=== PATIENT | female | born 1995 | race African-American/Black ===

== ENCOUNTER 2018-08-13 09:00 | Emergency (ER) | payer MEDICAID ==
[~2018-08-13] VITALS: Ht 149.9 cm; Wt 45.0 kg
[2018-08-13 09:04] VITALS: BP 96/54
== END 2018-08-13 11:54 | disposition left against medical advice (07) ==
LOC: ER 09:00
DX: Z53.21 Procedure and treatment not carried out due to patient leaving prior to being seen by health care provider (principal)

== ENCOUNTER 2024-12-10 13:05 | Emergency (ER) | payer OTHER ==
[~2024-12-10] VITALS: Ht 149.9 cm; Wt 46.0 kg
[2024-12-10 13:09] VITALS: O2SAT 100
[2024-12-10 13:30] VITALS: BP 118/73; PULSE 72; RESP 16; TEMP 36.8; O2SAT 99
[2024-12-10] MEDS ORDERED: FLUT9.9S BOTHNSTRLS (15:52)
[2024-12-10] MEDS ORDERED: LORA10TA64 MT (15:52)
== END 2024-12-10 16:43 | disposition left against medical advice (07) ==
LOC: ER 13:18
DX: J30.9 Allergic rhinitis, unspecified (principal); Z79.899 Other long term (current) drug therapy
CPT/HCPCS: 99283